=== PATIENT | male | born 1965 | race Two or more races ===

== ENCOUNTER 2020-12-10 15:06 | Outpatient (RCR) | payer BC, SELFPAY ==
[2020-12-10] MEDS: COVID-19 VACC, MRNA(PFIZER)/PF 30 MCG/0.3 ML SYRINGE IM (14:41)
[2020-12-31] MEDS: COVID-19 VACC, MRNA(PFIZER)/PF 30 MCG/0.3 ML SYRINGE IM (13:07)
== END 2020-12-10 23:59 ==
LOC: IMMUN 15:06
PROVIDERS: PCP General Practice; Referring Provider Family Medicine; Visit Provider Family Medicine
DX: Z23 Encounter for immunization (principal)
CPT/HCPCS: 0001A; 0002A; 91300